=== PATIENT | male | born 1945 | race Caucasian/White ===

== ENCOUNTER 2020-05-22 17:26 | Emergency (ER) | payer MEDICARE, OTHER ==
[2020-05-22 17:37] VITALS: BP 149/90
[2020-05-22] MEDS ORDERED: BUFFERED LIDOCAINE 10 ML SYRINGE SUBQ STA (17:42)
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
[2020-05-22] MEDS ORDERED: TETANUS/DIPHTHERIA/PERTUSSIS 0.5 ML SYRINGE IM ONE (17:58)
== END 2020-05-22 18:12 | disposition home or self-care (01) ==
LOC: ED 17:26
DX: S51.811A Laceration without foreign body of right forearm, initial encounter (principal); V18.0XXA Pedal cycle driver injured in noncollision transport accident in nontraffic accident, initial encounter; Y93.55 Activity, bike riding; Y92.410 Unspecified street and highway as the place of occurrence of the external cause; Z23 Encounter for immunization; I10 Essential (primary) hypertension
CPT/HCPCS: 12002; 90471; 99282; 99283

== ENCOUNTER 2023-02-22 21:23 | Outpatient (CLI) | payer MEDICARE | END 2023-02-22 21:24 | disposition EMS.NT | LOC: EMS 21:23 | DX: K30 Functional dyspepsia (principal); T49.0X1A Poisoning by local antifungal, anti-infective and anti-inflammatory drugs, accidental (unintentional), initial encounter ==

== ENCOUNTER 2023-05-22 13:31 | Outpatient (CLI) | payer MEDICARE | END 2023-05-22 23:59 | disposition EMS.NT | LOC: EMS 13:31 | DX: Z03.89 Encounter for observation for other suspected diseases and conditions ruled out (principal) ==

== ENCOUNTER 2023-12-29 14:08 | Emergency (ER) | payer MEDICARE ==
[2023-12-29 14:35] VITALS: BP 148/66; O2SAT 98
--- NOTE | 2023-12-29 15:29 | ED Physician Documentation ---
PD HPI UPPER EXT INJURY - Stated complaint Stated Complaint: LEFT SHOULDER PX - Chief complaint Chief Complaint: Trauma Ext - Additonal information Additional information: 78-year-old male presents emergency department for left shoulder pain. Patient does have dementia he is here with his who helps provide history they were out for a walk today he excellently tripped and fell onto his left shoulder. He is now having pain with abduction and adduction of the left shoulder mostly to the anterior region but he has been complaining to his about posterior shoulder pain. Patient did not hit his head he denies any neck pain. . PD PAST MEDICAL HISTORY - Past Medical History Past Medical History: Yes Cardiovascular: Hypertension Neuro: Dementia - Past Surgical History Past Surgical History: Yes General: Bowel surgery Cardiovascular: Other - Present Medications Home Medications: Ambulatory Orders Medication Instructions Recorded Confirmed Cholecalciferol (Vitamin D3) 1 tab PO DAILY 02/17/16 02/18/16 [Vitamin D] Multivitamin [Multivitamins] 1 tab PO DAILY 02/17/16 02/18/16 Donepezil [Aricept] 5 mg PO DAILY 05/22/20 05/22/20 Gabapentin 100 mg ORAL DAILY 05/22/20 05/22/20 oxyCODONE [Roxicodone] 5 mg PO Q4HR PRN #10 tablet 12/29/23 - Allergies Allergies/Adverse Reactions: Allergies Allergy/AdvReac Type Severity Reaction Status Date / Time Penicillins Allergy Hives Verified 12/29/23 14:32 - Social History Does the pt smoke?: No Smoking Status: Never smoker Does the pt drink ETOH?: Yes Does the pt have substance abuse?: No - Immunizations Immunizations are current?: Yes PD ED PE NORMAL - Vitals Vital signs reviewed: Yes - General General: No acute distress, Well developed/nourished - HEENT HEENT: Atraumatic, PERRL - Neck Neck: No bony TTP - Respiratory Respiratory: No respiratory distress, Clear bilaterally - Derm Derm: Normal color, Warm and dry - Extremities Extremities: Other (Left upper extremity. Tenderness with palpation to the anterior portion of the shoulder. Pain with abduction and adduction to the anterior shoulder. No obvious deformity strong radial pulse) Results - Vitals Vitals: Vital Signs - 24 hr 12/29/23 14:25 Temperature 36 C L Heart Rate 52 L Respiratory 16 Rate Blood Pressure 148/66 H O2 Saturation 98 Oxygen O2 Source Room air - Rads (name of study) Left shoulder x-ray Relevant Findings:: Final report received, EMP independent interpretation of test, Other (No acute fractures, no dislocations or other abnormal findings.) PD Medical Decision Making - ED course ED course: 78-year-old male presents emergency department for left shoulder pain after experiencing a ground-level fall. X-rays do not reveal any acute fractures or dislocations or other abnormalities. Patient came in wearing a sling he was told to continue to wear the sling with continue to do some gentle range of motion activities to the left shoulder so that he does not get a frozen shoulder. They are established with PCP with [facility] they said that they are planning on reaching out to [facility] for orthopedist referral for further evaluation of the left shoulder pain. He was offered oxycodone here in the emergency department but felt like his pain was well-controlled with the Tylenol ibuprofen he took at home. A prescription of oxycodone was sent to the patients preferred pharmacy and they were informed if they would like to pick it up and they are having a hard time managing the pain at home that they are able to do so. I am prescribing a short course of short-acting opioid pain medication for this patient. I have reviewed the patients MANAGER ONCOLOGY and no concerning findings were noted. I have discussed that the opioids are for short term therapy only, and will not be refilled from the ED. return precautions given to patient and patient's . Departure - Departure Disposition: 01 Home, Self Care Clinical Impression: Shoulder injury Qualifiers: Encounter type: initial encounter Laterality: left Qualified Code(s): S49.92XA - Unspecified injury of left shoulder and upper arm, initial encounter Instructions: Understanding AC Joint Sprain Prescriptions: oxyCODONE [Roxicodone] 5 mg PO Q4HR PRN #10 tablet PRN Reason: Pain >8 Comments: Thank you for trusting us with your care. You can continue with 1000 mg of Tylenol every 8 hours do not exceed 4000 mg of Tylenol in a 24 hour period. You can also take 500 mg of Aleve every 12 hours to help with pain of that left shoulder. You apply 20 minutes of ice at left shoulder make sure that you are taking 1 hour off. I sent a prescription of oxycodone to your preferred pharmacy [facility] in [place]. I am prescribing a short course of narcotic pain medication for you. These are potentially dangerous and addictive medications that should be used carefully. These medications may constipate you. Take an dgdx-syd-zdzbzvc stool softener (docusate) twice daily with plenty of water while taking these medications. If you go 24 hours without a bowel movement, take vizu-ife-aosqpco miralax, per package instructions. Do not drink or drive while taking these medications. If you received narcotic or sedating medications while in the emergency department, do not drive for 24 hours. Store this medication in a safe, secure place and out of reach of children. It is a violation of federal law to give or sell this medication to another person or to use in a manner other than prescribed. The ED will not refill narcotic prescriptions, including prescriptions lost or stolen. To dispose of unwanted medications: 1. [facility] at [address] in [place] has a medication drop box. They accept prescription medications (in pill form) Friday through Friday 9:00 a.m. to 5:00 p.m. 2. [facility] accepts prescription medications (in pill form only) for disposal year round. Call for more information. 3. Contact the [facility] for the next [facility] sponsored prescription drug collection event. , [phone], or [phone]; Note that many narcotic pain relievers also contain Tylenol/acetaminophen. Please ensure that your total dose of acetaminophen from all sources does not exceed 3 g (3000 mg) per day. Forms: PCP List Discharge Date/Time: 12/29/23 16:55
--- NOTE | 2023-12-29 16:07 | XRAY Report ---
PROCEDURE: Shoulder 2+V LT INDICATIONS: GLF, pain TECHNIQUE: 3 views of the shoulder were acquired. COMPARISON: None. FINDINGS: Bones: No fractures or dislocations. No suspicious bony lesions. Visualized ribs appear intact. Soft tissues: No suspicious soft tissue calcifications. The visualized lungs are within normal limi ts. IMPRESSION: No acute fracture. No osseous lesion. If symptoms and/or clinical suspicion for patholog y continue, further assessment with repeat plain films, or advanced imaging (e.g., CT, MRI, or bone s can) is recommended for further assessment. Reviewed by: Darrell Evangelista MD on 12/29/2023 4:05 PM PDT Approved by: Darrell Evangelista MD on 12/29/2023 4:05 PM PDT Station ID: [id number]
== END 2023-12-29 16:55 | disposition home or self-care (01) ==
LOC: ED 14:08
DX: S49.92XA Unspecified injury of left shoulder and upper arm, initial encounter (principal); W19.XXXA Unspecified fall, initial encounter
CPT/HCPCS: 99283; 99284

== ENCOUNTER 2025-03-08 10:44 | Inpatient (IN) ==
--- OUTSIDE RECORDS SUMMARY | 2025-03-08 10:50 | EXTERNAL MEDICAL SUMMARY RPT | Continuity of Care Document ---
Author Organization [facility] Address [address] [place] [id number] Phone Problems date description facility 2025-01-27 09:36 Unspecified injury of head, ini tial encounter [facility] 2025-01-31 09:50 Low back pain, unspecified [facility] 2025-02-17 08:53 Low back pain, unspecified [facility] 2025-03-02 13:24 Dementia in other di seases classified elsewhere, unspecified severity, without behavioral disturbance, psychotic disturbance, mood disturbance, and anxiety [facility] 2025-03-02 13:24 Alzheimer's disease, unspecifie d [facility] 2025-03-02 13:28 Dementia in other di seases classified elsewhere, unspecified severity, without behavioral disturbance, psychotic disturbance, mood disturbance, and anxiety [facility] 2025-03-02 13:28 Alzheimer's disease, unspecifie d [facility] 2025-03-02 13:36 Dementia in other di seases classified elsewhere, unspecified severity, without behavioral disturbance, psychotic disturbance, mood disturbance, and anxiety [facility] 2025-03-02 13:36 Alzheimer's disease, unspecifie d [facility] 2025-03-02 16:46 Alzheimer's disease, unspecifie d [facility] 2025-03-02 20:17 Dementia in other di seases classified elsewhere, unspecified severity, without behavioral disturbance, psychotic disturbance, mood disturbance, and anxiety [facility] 2025-03-02 20:17 Alzheimer's disease, unspecifie d [facility] 2025-03-02 20:17 Other retention of urine [facility] 2025-03-03 07:39 Dementia in other di seases classified elsewhere, unspecified severity, without behavioral disturbance, psychotic disturbance, mood disturbance, and anxiety [facility] 2025-03-03 07:39 Alzheimer's disease, unspecifie d [facility] 2025-03-03 07:39 Other retention of urine [facility] 2025-03-03 09:28 Dementia in other di seases classified elsewhere, unspecified severity, without behavioral disturbance, psychotic disturbance, mood disturbance, and anxiety [facility] 2025-03-03 09:28 Alzheimer's disease, unspecifie d [facility] 2025-03-03 09:28 Other retention of urine [facility] 2025-03-03 09:33 Dementia in other di seases classified elsewhere, unspecified severity, without behavioral disturbance, psychotic disturbance, mood disturbance, and anxiety [facility] 2025-03-03 09:33 Alzheimer's disease, unspecifie d [facility] 2025-03-03 09:33 Other retention of urine [facility] 2025-03-03 11:15 Dementia in other di seases classified elsewhere, unspecified severity, without behavioral disturbance, psychotic disturbance, mood disturbance, and anxiety [facility] 2025-03-03 11:15 Alzheimer's disease, unspecifie d [facility] 2025-03-03 11:15 Other retention of urine [employer] Results/Labs test date facility value unit notes Result panel 1 UROBILINOGEN,URINE 2025-02-28 19:14 [facility] 0.2 (NORMAL) e.u./dl (missing) SPECIFIC GRAVITY,URINE 2025-02-28 19:14 [facility] 1.015 (missing) (missing) PH,URINE 2025-02-28 19:14 [facility] 6.5 ph (missing) CLARITY,URINE 2025-02-28 19:14 [facility] CLEAR (missing) (missing) MUDS CUTOFF CONCENTRATIONS 2025-02-28 19:[address] [facility] CUTOFF CONC BELOW: (missing) [facility] uses the PROFILE-V [place] Drugs of Abuse Test System. It detects drug classes at the following cutoff concentrations: AMP Amphetamine (d-Amphetamine) 500 ng/mL BAR Barbiturates (Butalbital) 200 ng/mL BZO Benzodiazepines (Nordiazepam) 150 ng/mL BUP Buprenorphine (Buprenorphine) 10 ng/mL ÁNGELA Cocaine (Benzoylecgonine) 150 ng/mL MAMP Methamphetamine (d-Methamphetamine ) 500 ng/mL MTD Methadone (Methadone) 200 ng/mL OPI Opiates (Morphine) 100 ng/mL OXY Oxycodone (Oxycodone) 100 ng/mL PCP Phencyclidine (Phencyclidine) 25 ng/mL BUP Buprenorphine (Buprenorphine) 10 ng/mL THC Cannabinoids (61-xgb-9-carboxy- 9-THC) 50 ng/mL TCA Tricyclic Antidepressants (Desipramine) 300 ng/mL All drug screen results are unconfirmed. Results are to be used for medical (i.e. treatment) purposes only. Unconfirmed screening results must not be used for non-medical purposes (e.g., employment testing, legal testing). AMPHETAMINE SCREEN,URINE 2025-02-28 19:14 [facility] NEGATIVE (missing) (missing) BARBITURATE SCREEN,UR 2025-02-28 19:14 [facility] NEGATIVE (missing) (missing) BENZODIAZEPINES SCREEN, URINE 2025-02-28 19:14 [facility] NEGATIVE (missing) (missing) BUPRENORPHINE SCREEN, URINE 2025-02-28 19:14 [facility] NEGATIVE (missing) (missing) COCAINE SCREEN URINE 2025-02-28 19:14 [facility] NEGATIVE (missing) (missing) LEUKOCYTE ESTERASE, URINE 2025-02-28 19:14 [facility] NEGATIVE (missing) (missing) METHADONE SCREEN, URINE 2025-02-28 19:14 [facility] NEGATIVE (missing) (missing) METHAMPHETAMINES SCREEN, URINE 2025-02-28 19:14 [facility] NEGATIVE (missing) (missing) NITRITE,URINE 2025-02-28 19:14 [facility] NEGATIVE (missing) (missing) OCCULT BLOOD,URINE 2025-02-28 19:14 [facility] NEGATIVE (missing) (missing) OPIATE SCREEN, URINE 2025-02-28 19:14 [facility] NEGATIVE (missing) (missing) OXYCODONE SCREEN, URINE 2025-02-28 19:14 [facility] NEGATIVE (missing) (missing) PHENCYCLIDINE SCREEN, URINE 2025-02-28 19:14 [facility] NEGATIVE (missing) (missing) THC CANNABINOID SCREEN, URINE 2025-02-28 19:14 [facility] NEGATIVE (missing) (missing) TRICYCLIC ANTIDEPRESSANT,URINE 2025-02-28 19:14 [facility] NEGATIVE (missing) (missing) BILIRUBIN,URINE 2025-02-28 19:14 [facility] NEGATIVE (missing) Bilirubin can be influenced by color interference. Please correlate positive results with clinical presentation GLUCOSE, URINE (UA) 2025-02-28 19:14 [facility] NEGATIVE mg/dl (missing) KETONES,URINE (UA) 2025-02-28 19:14 [facility] NEGATIVE mg/dl (missing) PROTEIN,URINE 2025-02-28 19:14 [facility] NEGATIVE mg/dl (missing) UR CULTURE IF IND 2025-02-28 19:14 [facility] NOT INDICATED (missing) (missing) URINE MICROSCOPIC INDICATED? 2025-02-28 19:14 [facility] NOT INDICATED (missing) (missing) COLOR,URINE 2025-02-28 19:14 [facility] YELLOW (missing) (missing) Result panel 2 SALICYLATE 2025-02-28 20:14 [facility] < 1.5 mg/dl Social History date description facility
--- NOTE | 2025-03-08 11:01 | ED Physician Documentation ---
PD HPI ALTERED MENTAL STATUS Stated complaint Stated Complaint: AMS/SLEEPING X2 DAYS Chief complaint Chief Complaint: General History obtained from History obtained from: Patient (not much info from patient as he is somnolent (rousable but no answering questions). ), Family (spouse) and EMS History of Present Illness Timing - onset: How many days ago ( states pt has been very sleepy and less interactive, not up and walking, since hospitalization recently and then at [facility]. Caregivers at [facility] state pt has been sleeping, no PO intake, the past 2 days. Poorly responsive still today. ) Timing - details: Gradual onset and Still present Quality / character: Less responsive Associated symptoms: No Fever or Dyspnea Contributing factors: Recent med change (started on respiradone due to agitation, 50 mg BID, and has been administered per SNF DEC. also Rx ativan PRN but no doses given there as yet. ) and Recent illness (UTI and urinary retention, along with agitation. ) Basline status: Ambulatory ( states he had been ambualtory, taking walks and out with her in the garden, up until couple weeks ago. Had been more agitated and seen in ED/extended stay for 4 days and placed at SNF with new meds for agitation.) and Disoriented (dementia) Recently seen: Emergency Dept Meds/Allgy Home Medications Ambulatory Orders Medication Instructions Recorded Confirmed cholecalciferol (vitamin D3) 50 50 mcg PO DAILY #30 ca ps 03/02/25 03/08/25 mcg (2,000 unit) capsule (Vitamin D3) cyanocobalamin (vitamin B-12) 500 500 mcg PO DAILY #30 tabs 03/02/25 03/08/25 mcg tablet (Vitamin B-12) divalproex 125 mg capsule,delayed 125 mg PO TID #90 ca ps 03/02/25 03/08/25 release sprinkle escitalopram oxalate 10 mg tablet 20 mg (2 x 10 mg) PO DAILY #60 tabs 03/02/25 03/08/25 gabapentin 100 mg capsule 200 mg (2 x 100 mg) PO BIDAC #60 03/02/25 03/08/25 caps ipratropium bromide 21 mcg (0.03 2 spray intranasal BI D #30 mL 03/02/25 03/08/25 %) nasal spray lorazepam 1 mg tablet 1 mg PO TID PRN agitation #9 0 tabs 03/02/25 03/08/25 melatonin 5 mg capsule 5 mg PO HS insomnia #30 caps 03/02/25 03/08/25 risperidone 0.25 mg tablet 0.5 mg (2 x 0.25 mg) PO BID #60 03/02/25 03/08/25 tabs tamsulosin 0.4 mg capsule (Flomax) 0.4 mg PO DAILY #30 caps 03/02/25 03/08/25 acetaminophen 325 mg tablet 650 mg PO Q4H PRN fever or pain 03/08/25 03/08/25 acetaminophen 500 mg tablet 500 mg PO Q6H PRN fever or pain 03/08/25 03/08/25 alum-mag hydroxide-simeth 30 ml PO Q4H PRN UPSET STOMA CH 03/08/25 03/08/25 gabapentin 300 mg PO .QHS 03/08/25 05/ 0 loperamide 4 mg PO .COMPLEX PRN constip ation 03/08/25 03/08/25 magnesium 2,400 mg PO DAILY PRN consti pation 03/08/25 03/08/25 magnesium oxide 400 mg PO DAILY 03/08/25 Allergies Allergies Allergy/AdvReac Type Severity Reaction Status Date / Time Penicillins Allergy Hives Verified 03/08/25 10:49 PFSH Active Problems All Active Problems (Updated 03/09/25 @ 00:00 by Destin Slade MD) Medication side effect (Acute) Acute bilateral obstructive uropathy (Acute) Acute metabolic encephalopathy (Acute) High anion gap metabolic acidosis (Acute) Urinary tract infection (Acute) Hyperkalemia (Acute) Acute kidney injury (Acute) Acute urinary retention (Acute) Alzheimer disease (Acute) Medical History Medical History (Updated 03/09/25 @ 00:00 by Destin Slade MD) HTN (hypertension) Social History Social History Smoking Status: Former smoker Second hand tobacco smoke exposure: No Do you dip or chew tobacco?: No Do you vape?: No Living arrangement: At home Living Condition: With spouse/s.o. Relationship: Spouse Level: Independent Do you feel safe in your home environment?: Yes Suffered physical, verbal, emotional, or financial abuse?: No ETOH Use: Frequency: Daily Number of Amount/day: 1 POLST Patient has POLST: Yes POLST Status: DNR Exam Exam Vital Signs: Vital Signs x48h Temp Pulse Resp BP Pulse Ox 03/08/25 10:49 36.6 C 135 H 18 139/105 H 93 Constitutional normal general appearance, average body habitus and level of alertness abnormal (obtunded) and (lethargic) HENMT head/scalp atraumatic and oral mucous membranes abnormal (dry) Neck/C-Spine cervical full ROM noted and supple Lymph no lymphadenopathy noted Respiratory breath sounds equal bilaterally and normal respiratory effort Cardiovascular normal heart rate noted, regular rhythm noted and no edema Gastrointestinal tender to palpation (moderate) and (suprapubic) (with fullness of the bladder. bladder scanner showed over 900 ml. ) and nontender to percussion Psychiatry mental status abnormal (somnolent) and (obtunded) Skin skin color normal Results Vitals Vitals: Vital Signs - 24 hr 03/08/25 10:49 03/08/25 11:08 03/08/25 11:30 Temperature 36.6 C Temperature Source Temporal Artery Scan Pulse Rate 135 H 129 H 127 H Pulse Rate [Brachial] Respiratory Rate 18 16 18 Blood Pressure 139/105 H 139/105 H 140/96 H Blood Pressure [Left Brachial artery] O2 Saturation 93 92 94 O2 Source Room air Room air Room air Sedation scale Pain Intensity 0 03/08/25 11:45 03/08/25 12:00 03/08/25 12:15 Temperature Temperature Source Pulse Rate 98 103 H 104 H Pulse Rate [Brachial] Respiratory Rate 18 18 18 Blood Pressure 132/81 H 119/89 111/67 Blood Pressure [Left Brachial artery] O2 Saturation 93 95 94 O2 Source Room air Sedation scale Pain Intensity 03/08/25 12:30 03/08/25 12:45 03/08/25 13:00 Temperature Temperature Source Pulse Rate 109 H 66 83 Pulse Rate [Brachial] Respiratory Rate 18 18 18 Blood Pressure 87/70 L 104/76 114/78 Blood Pressure [Left Brachial artery] O2 Saturation 94 92 92 O2 Source Room air Room air Sedation scale Pain Intensity 03/08/25 13:15 03/08/25 13:30 03/08/25 14:00 Temperature Temperature Source Pulse Rate 92 66 134 H Pulse Rate [Brachial] Respiratory Rate 18 18 18 Blood Pressure 114/85 106/83 132/82 H Blood Pressure [Left Brachial artery] O2 Saturation 94 93 92 O2 Source Room air Sedation scale Pain Intensity 03/08/25 14:15 03/08/25 14:45 03/08/25 15:08 Temperature 36.6 C Temperature Source Temporal Artery Scan Pulse Rate 120 H 112 H Pulse Rate [Brachial] 94 Respiratory Rate 18 16 20 Blood Pressure 116/91 H 130/95 H Blood Pressure [Left Brachial artery] 146/75 H O2 Saturation 92 95 95 O2 Source Room air Room air Sedation scale 0-Fully awake Pain Intensity Oxygen O2 Source Room air Labs Labs: Laboratory Tests 03/08/25 03/08/25 03/08/25 11:17 11:35 11:35 WBC 12.5 H RBC 4.71 Hgb 15.8 Hct 47.0 MCV 99.8 H MCH 33.5 H MCHC 33.6 RDW 13.3 Plt Count 152 MPV 10.1 Neut # (Auto) 10.2 H Lymph # (Auto) 0.7 L [place] # (Auto) 1.5 H Eos # (Auto) 0.0 Baso # (Auto) 0.0 Absolute Nucleated RBC 0.00 Nucleated RBC % 0.0 Manual Slide Review Indicated WBC Morphology NORMAL APPEARANCE Platelet Estimate NORMAL (130-450,000) Platelet Morphology NORMAL APPEARANCE RBC Morph Micro Appear NORMAL APPEARANCE VBG pH 7.431 H VBG pCO2 26.0 L VBG pO2 79.8 H VBG HCO3 17.4 L VBG Total CO2 18.2 L VBG O2 Saturation 96.0 H VBG Base Excess -7.1 L Sodium 146 H Potassium 5.3 H Chloride 109 Carbon Dioxide 20 L Anion Gap 17.0 H BUN 111 H* Creatinine 11.0 H* Estimated GFR (MDRD) 5 L Glucose 147 H Calcium 9.2 Magnesium 3.1 H Total Bilirubin 1.1 H AST 22 ALT 38 Alkaline Phosphatase 55 Total Protein 7.1 Albumin 3.8 Globulin 3.3 Albumin/Globulin Ratio 1.2 Lipase < 10 L Urine Color YELLOW Urine Clarity SL. CLOUDY Urine pH 6.0 Ur Specific [place] 1.020 Urine Protein TRACE Urine Glucose (UA) NEGATIVE Urine Ketones NEGATIVE Urine Occult Blood LARGE H Urine Nitrite NEGATIVE Urine Bilirubin NEGATIVE Urine Urobilinogen 0.2 (NORMAL) Ur Leukocyte Esterase TRACE H Urine RBC TNTC H Urine WBC 11-25 H Ur Squamous Epith Cells NONE SEEN Urine Bacteria Few Urine Casts 0-2 WBC Casts 3-5 Hyaline Casts Urine Mucus Moderate Strands Urine Culture Comments INDICATED Nasal Adenovirus (PCR) NOT DETECTED Nasal B. parapertussis DNA (PCR) NOT DETECTED Nasal Coronavir 229E PCR NOT DETECTED Nasal Coronavir HKU1 PCR NOT DETECTED Nasal Coronavir NL63 PCR NOT DETECTED Nasal Coronavir OC43 PCR NOT DETECTED Nasal Enterovir/Rhinovir PCR NOT DETECTED Nasal Influenza B PCR NOT DETECTED Nasal Influenza A PCR NOT DETECTED Nasal Parainfluen 1 PCR NOT DETECTED Nasal Parainfluen 2 PCR NOT DETECTED Nasal Parainfluen 3 PCR NOT DETECTED Nasal Parainfluen 4 PCR NOT DETECTED Nasal RSV (PCR) NOT DETECTED Nasal B.pertussis DNA PCR NOT DETECTED Nasal C.pneumoniae (PCR) NOT DETECTED Joesph Human Metapneumo PCR NOT DETECTED Nasal M.pneumoniae (PCR) NOT DETECTED Nasal SARS-CoV-2 (PCR) NOT DETECTED Last Dose Date UNK Last Dose Time UNK Valproic Acid 12.7 03/08/25 13:37 WBC RBC Hgb Hct MCV MCH MCHC RDW Plt Count MPV Neut # (Auto) Lymph # (Auto) [place] # (Auto) Eos # (Auto) Baso # (Auto) Absolute Nucleated RBC Nucleated RBC % Manual Slide Review WBC Morphology Platelet Estimate Platelet Morphology RBC Morph Micro Appear VBG pH VBG pCO2 VBG pO2 VBG HCO3 VBG Total CO2 VBG O2 Saturation VBG Base Excess Sodium 148 H Potassium 4.9 H Chloride 114 H Carbon Dioxide 23 Anion Gap 11.0 BUN 95 H* Creatinine 8.2 H* Estimated GFR (MDRD) 6 L Glucose 137 H Calcium 8.6 Magnesium Total Bilirubin AST ALT Alkaline Phosphatase Total Protein Albumin Globulin Albumin/Globulin Ratio Lipase Urine Color Urine Clarity Urine pH Ur Specific [place] Urine Protein Urine Glucose (UA) Urine Ketones Urine Occult Blood Urine Nitrite Urine Bilirubin Urine Urobilinogen Ur Leukocyte Esterase Urine RBC Urine WBC Ur Squamous Epith Cells Urine Bacteria Urine Casts Urine Mucus Urine Culture Comments Nasal Adenovirus (PCR) Nasal B. parapertussis DNA (PCR) Nasal Coronavir 229E PCR Nasal Coronavir HKU1 PCR Nasal Coronavir NL63 PCR Nasal Coronavir OC43 PCR Nasal Enterovir/Rhinovir PCR Nasal Influenza B PCR Nasal Influenza A PCR Nasal Parainfluen 1 PCR Nasal Parainfluen 2 PCR Nasal Parainfluen 3 PCR Nasal Parainfluen 4 PCR Nasal RSV (PCR) Nasal B.pertussis DNA PCR Nasal C.pneumoniae (PCR) Joesph Human Metapneumo PCR Nasal M.pneumoniae (PCR) Nasal SARS-CoV-2 (PCR) Last Dose Date Last Dose Time Valproic Acid PD Medical Decision Making ED course Complexity details: reviewed old records (recent hospitalization and discharge summary/med changes. ), reviewed results (renal function is signficantly off, presume dehydration given his somnolence for several days, and likely obstructive uropathy. Creatinine was already down from 11 to 8 after lewis cath and IV fluids. ), considered differential (altered mentation, sleepy and not eating/drinking for days. Consider likely new med of respiradone that was started due to agitation with his dementia. Then dehydration with uremia continuing the AMS. /POLST indicate no dialysis/etc. ), d/w patient (no direct info from pt, but responds to stimulus, showing tender in bladder area. ), d/w family ( present in ED and would like minimal interventions - IV fluids to improve dehydration and we agree holding the respiradone as his altered entation seems timed with the med. He might need med for agitation but would go lower dose such as 12.5 mg if needs to resume it. ) and d/w life skills consultant (Hospitalist, who will see pt. ) Reviewed Lab Results: bedside bladder scanner showing over 900 ml in bladder. Lewis placed by nursing. Discharge Plan Discharge Patient Disposition: ED Place in Observation Condition: Poor Clinical Impression: Acute metabolic encephalopathy, Acute urinary retention, Acute kidney injury, Acute bilateral obstructive uropathy, Medication side effect, Alzheimer disease Interventions: ED Admission Assessment Last Done: 03/08/25 15:00
[2025-03-08] MEDS: SODIUM CHLORIDE 0.9% 1,000 ML IV STA ×2 (11:16→12:38)
[2025-03-08 11:24] LABS: BASOPHILS % (AUTO) 0.2 %; EOSINOPHILS % (AUTO) 0.1 %; HGB - HEMOGLOBIN 15.8 g/dL (14.0-18.0); LYMPHOCYTES # (AUTO) 0.7 10^3/uL (1.5-3.5); LYMPHOCYTES % (AUTO) 5.3 %; MEAN CORPUSCULAR HEMOGLOBIN 33.5 pg (27.0-31.0); MEAN CORPUSCULAR HGB CONC 33.6 g/dL (32.0-36.0); MEAN CORPUSCULAR VOLUME 99.8 fL (80.0-94.0); MEAN PLATELET VOLUME 10.1 fL (7.4-11.4); MONOCYTES # (AUTO) 1.5 10^3/uL (0.0-1.0); MONOCYTES % (AUTO) 12.2 %; NEUTROPHILS # (AUTO) 10.2 10^3/uL (1.5-6.6); NEUTROPHILS % (AUTO) 81.9 %; PLT - PLATELET COUNT 152 10^3/uL (130-450); RED BLOOD COUNT 4.71 10^6/uL (4.70-6.10); RED CELL DISTRIBUTION WIDTH 13.3 % (12.0-15.0); WHITE BLOOD COUNT 12.5 x10^3/uL (4.8-10.8)
[2025-03-08 11:26] LABS: VBG BASE EXCESS -7.1 mmol/L (-2 - +2); VBG PH 7.431 (7.31-7.41); VBG PO2 79.8 mmHg (25-47); VBG TOTAL CO2 18.2 mmol/L (24-29)
[2025-03-08 11:37] LABS: MAGNESIUM 3.1 mg/dL (1.7-2.3); VALPROIC ACID (DEPAKOTE) 12.7 ug/mL
[2025-03-08 11:42] LABS: ALBUMIN 3.8 g/dL (3.2-5.5); ALBUMIN/GLOBULIN RATIO 1.2 (1.0-2.2); ALKALINE PHOSPHATASE 55 IU/L (42-121); ALT ALANINE AMINOTRANSFERASE 38 IU/L (10-60); AST ASPARTATE AMINOTRANSFERASE 22 IU/L (10-42); BILIRUBIN,TOTAL 1.1 mg/dL (0.2-1.0); BUN - BLOOD UREA NITROGEN 111 mg/dL (6-20); CALCIUM 9.2 mg/dL (8.5-10.3); CARBON DIOXIDE - CO2 20 mmol/L (21-32); CHLORIDE 109 mmol/L (101-111); GFR - MDRD 5 (>89); GLUCOSE 147 mg/dL (74-104); LIPASE < 10 U/L (11-82); POTASSIUM 5.3 mmol/L (3.5-4.5); SODIUM 146 mmol/L (135-145); TOTAL PROTEIN 7.1 g/dL (6.4-8.9)
[2025-03-08 11:45] LABS: BILIRUBIN,URINE NEGATIVE (NEGATIVE); GLUCOSE, URINE (UA) NEGATIVE (NEGATIVE); KETONES,URINE (UA) NEGATIVE (NEGATIVE); LEUKOCYTE ESTERASE, URINE TRACE (NEGATIVE); NITRITE,URINE NEGATIVE (NEGATIVE); OCCULT BLOOD,URINE LARGE (NEGATIVE); PROTEIN,URINE TRACE mg/dL (NEGATIVE); UROBILINOGEN,URINE 0.2 (NORMAL) E.U./dL (NORMAL)
[2025-03-08 11:50] LABS: PLATELET ESTIMATE, MANUAL NORMAL (130-450,000) (NORMAL); PLATELET MORPHOLOGY NORMAL APPEARANCE (NORMAL); SLIDE REVIEW? Indicated
[2025-03-08 11:51] LABS: RBC MORPHOLOGY (MULTIPLE) NORMAL APPEARANCE (NORMAL); WBC MORPHOLOGY (MULTIPLE) NORMAL APPEARANCE (NORMAL)
--- NOTE | 2025-03-08 11:56 | XRAY Report ---
PROCEDURE: XR Chest 1V INDICATIONS: dyspnea TECHNIQUE: One view of the chest was acquired. COMPARISON: None. FINDINGS: Surgical changes and devices: None. Lungs and pleura: No pleural effusions or pneumothorax. No consolidation. Mediastinum: Mediastinal contours appear normal. Heart size is mildly enlarged. Bones and chest wall: No suspicious bony lesions. Overlying soft tissues appear unremarkable. IMPRESSION: Mild cardiomegaly. No gross infiltrates. Reviewed by: Timothy Schwab MD on 03/08/2025 11:54 AM PDT Approved by: Timothy Schwab MD on 03/08/2025 11:54 AM PDT Station ID: [id number]
[2025-03-08 11:58] LABS: BACTERIA,URINE Few /HPF (None Seen); CLARITY,URINE SL. CLOUDY (CLEAR); MUCUS,URINE Moderate Strands; RBC,URINE TNTC /HPF (0-5); SQUAMOUS EPITHELIAL CELL,UR NONE SEEN (<= Few)
[2025-03-08 12:26] LABS: B. PARAPERTUSSIS- RESP PCR PAN NOT DETECTED; B. PERTUSSIS- RESP PCR PANEL NOT DETECTED; C. PNEUMONIAE- RESP PCR PANEL NOT DETECTED; CORONAVIRUS 229E-RESP PCR NOT DETECTED; CORONAVIRUS HKU1-RESP PCR NOT DETECTED; CORONAVIRUS NL63-RESP PCR NOT DETECTED; CORONAVIRUS OC43-RESP PCR NOT DETECTED; HUMAN METAPNEUMOVIRUS NOT DETECTED; INFLUENZA A- RESP PCR PANEL NOT DETECTED; INFLUENZA B - RESP PCR PANEL NOT DETECTED; M. PNEUMONIAE- RESP PCR PANEL NOT DETECTED; PARAINFLUENZA VIRUS 1 NOT DETECTED; PARAINFLUENZA VIRUS 2 NOT DETECTED; PARAINFLUENZA VIRUS 4 NOT DETECTED; RHINOVIRUS/ENTEROVIRUS NOT DETECTED; RSV- RESP PCR PANEL NOT DETECTED; SARS-CoV-2 -RESP PCR PANEL NOT DETECTED
--- NOTE | 2025-03-08 13:08 | HISTORY & PHYSICAL EXAMINATION ---
Chief Complaint Chief Complaint Chief Complaint: Lethargy History of Present Illness Admitted From Admitted From:: Memory care facility History Obtained From Records Reviewed: EMR History obtained from: Patient's at bedside Exam Limitations: Patient lethargic History of Present Illness HPI Comment/Other: Patient is a 79-year-old man with a history of Alzheimer's dementia who presented due to worsening lethargy. History is taken from patient's at bedside as patient is unable to provide so. He is nonverbal at this time. Patient's says about 2 weeks ago, she started noticing increased aggression. She has a long history of dealing with Alzheimer's disease in her mother, as well as her 's mother. Initially, she was able to handle him at home. However, with increased aggression and outburst, it was not safe for her to do so. As such, she brought him to the ER at that time, and patient was placed in a memory care facility. During that stay, he was found to be retaining urine. A Meier catheter was placed. At the memory care facility, he pulled out his Meier catheter. Over the last few days, per the , he has been increasingly lethargic. Usually he wakes up, and is able to eat a little bit. However, he is unable to do so at this time. He has been sleeping all day. Lab work was reviewedpatient has a leukocytosis of 12.5. His pH was 7.43, his CO2 is 26. His sodium is elevated at 146, his potassium is 5.3. He has a high and gap metabolic acidosis. His BUN is 111. His creatinine is elevated at 11, with his baseline on 02/28/2025 being 1.2. His magnesium was high at 3.1 as well. He is UA is positive for blood, leukocyte esterase, WBCs. Abdomen/pelvis CT without contrast was completed, read remains pending. Meier catheter was placed. was spoken with at bedside extensively about goals of careshe does not want dialysis. He is DNR/DNI. She would like to give him some time with IV fluids, antibiotics, minimal medical management. However, if there is not much improvement, she is very well versed in hospice care and will be okay going down that route. Meds/Allgy Home Medications Ambulatory Orders Medication Instructions Recorded Confirmed acetaminophen 325 mg tablet 650 mg (2 x 325 mg) PO Q4H R PRN 03/02/25 Pain 1 to 4, or Fever #30 tabs cholecalciferol (vitamin D3) 50 50 mcg PO DAILY #30 ca ps 03/02/25 03/02/25 mcg (2,000 unit) capsule (Vitamin D3) cyanocobalamin (vitamin B-12) 500 500 mcg PO DAILY #30 tabs 03/02/25 03/02/25 mcg tablet (Vitamin B-12) divalproex 125 mg capsule,delayed 125 mg PO TID #90 ca ps 03/02/25 03/02/25 release sprinkle escitalopram oxalate 10 mg tablet 20 mg (2 x 10 mg) PO DAILY #60 tabs 03/02/25 03/02/25 gabapentin 100 mg capsule 200 mg (2 x 100 mg) PO BIDAC #60 03/02/25 03/02/25 caps gabapentin 100 mg capsule 300 mg (3 x 100 mg) PO HS #9 0 caps 03/02/25 03/02/25 ipratropium bromide 21 mcg (0.03 2 spray intranasal BI D #30 mL 03/02/25 %) nasal spray lorazepam 1 mg tablet 1 mg PO TID PRN agitation #9 0 tabs 03/02/25 magnesium oxide 400 mg (241.3 mg 400 mg PO DAILY #30 t abs 03/02/25 03/02/25 magnesium) tablet melatonin 5 mg capsule 5 mg PO HS insomnia #30 caps 03/02/25 03/02/25 risperidone 0.25 mg tablet 0.5 mg (2 x 0.25 mg) PO BID #60 03/02/25 tabs tamsulosin 0.4 mg capsule (Flomax) 0.4 mg PO DAILY #30 caps 03/02/25 Allergies Allergies Allergy/AdvReac Type Severity Reaction Status Date / Time Penicillins Allergy Hives Verified 03/08/25 10:49 PFSH Active Problems All Active Problems (Updated 03/08/25 @ 16:21 by Niko Mendoza MD) Acute metabolic encephalopathy (Acute) High anion gap metabolic acidosis (Acute) Urinary tract infection (Acute) Hyperkalemia (Acute) Acute kidney injury (Acute) Acute urinary retention (Acute) Alzheimer disease (Acute) Medical History Medical History (Updated 03/08/25 @ 16:21 by Niko Mendoza MD) HTN (hypertension) Social History Social History Smoking Status: Former smoker Second hand tobacco smoke exposure: No Do you dip or chew tobacco?: No Do you vape?: No Living arrangement: At home Living Condition: With spouse/s.o. Relationship: Spouse Level: Independent Do you feel safe in your home environment?: Yes Suffered physical, verbal, emotional, or financial abuse?: No ETOH Use: Frequency: Daily Number of Amount/day: 1 POLST Patient has POLST: Yes POLST Status: DNR Review of Systems Patient lethargic, non-verbal, A&O x 0. Status of ROS: unobtainable due to medical condition and unobtainable due to mental status Prior Level of Functionality: Lives at [facility]. Advanced Alzheimers' dementia. Exam Exam Vital Signs: Vital Signs x48h Temp Pulse Pulse Resp BP BP Pulse Ox 03/08/25 15:08 97.9 F 94 20 146/75 H 95 03/08/25 14:45 112 H 16 130/95 H 95 03/08/25 14:15 120 H 18 116/91 H 92 03/08/25 14:00 134 H 18 132/82 H 92 03/08/25 13:30 66 18 106/83 93 03/08/25 13:15 92 18 114/85 94 03/08/25 13:00 83 18 114/78 92 03/08/25 12:45 66 18 104/76 92 03/08/25 12:30 109 H 18 87/70 L 94 03/08/25 12:15 104 H 18 111/67 94 03/08/25 12:00 103 H 18 119/89 95 03/08/25 11:45 98 18 132/81 H 93 03/08/25 11:30 127 H 18 140/96 H 94 03/08/25 11:08 129 H 16 139/105 H 92 03/08/25 10:49 97.9 F 135 H 18 139/105 H 93 Constitutional normal general appearance, no apparent distress, average body habitus and level of alertness abnormal Lethargic, mildly repsonsive to sternal rub. HENMT normocephalic and head/scalp atraumatic Eyes PERRL, EOMs intact bilaterally and conjunctivae normal Chest inspection of chest normal and palpation of chest normal Respiratory breath sounds equal bilaterally, normal respiratory effort, clear to auscultation bilaterally, no wheezes, no rales and no retractions Cardiovascular heart rate abnormal (tachycardic), regular rhythm noted, no gallop, no rub and no murmur Gastrointestinal abdomen normal to inspection, abdomen soft to palpation, no hepatosplenomegaly and no masses Genitourinary no CVA tenderness and bladder abnormal to palpation (tender) Meier catheter in place with yellow-brown urine noted Back/Pelvis spine normal to inspection Extremities normal to inspection, normal to palpation, no tenderness and full ROM Neurology no movement abnormality noted and no focal motor deficit noted Psychiatry orientation abnormal (disoriented to person), (disoriented to place) and (disoriented to time) and thought process normal lethargic, mildly repsonsive to painful stimuli i.e. sternal rub Skin skin color normal, no rash and no lesions Conclusion/Plan Problem List (1) Acute urinary retention: Plan: When patient presented, he was retaining about 900 cc of urine. Meier catheter placed. UA positive for infection. Continue IV Rocephin at this time. CT abdomen/pelvis ordered, read pending, to assess for stones or obstruction. (2) Acute metabolic encephalopathy: Plan: Patient has underlying Alzheimer's disease. However, current mentation is likely worsened by uremia, VESNA. Continue IV fluid resuscitation at this time. (3) Acute kidney injury: Plan: Creatinine elevated at 11, repeat after fluids is 8.2. Patient is making adequate urine. Continue IV fluids at this time. UA positive for infection. Continue IV Rocephin at this time. (4) Hyperkalemia: Plan: Secondary to acute kidney injury. Downtrending with improvement of VESNA. Continue IV fluids at this time. (5) Urinary tract infection: Plan: Continue IV Rocephin. CT abdomen/pelvis ordered, pending. Qualifiers: Hematuria presence: without hematuria Urinary tract infection type: s ite unspecified Qualified Code(s): N39.0 - Urinary tract infection, site not specified (6) High anion gap metabolic acidosis: Plan: Likely due to uremia in setting of acute kidney injury. Management as above. (7) Alzheimer disease: Plan: Patient has a longstanding history of Alzheimer's disease. Patient's is at bedside. She is very understanding of his trajectory, goals of care, etc. If by tomorrow, his mentation is not improving, we will consult hospice for informational, as per . Lab Results Lab results reviewed: Yes 03/08/25 11:17 03/08/25 13:37 Diagnostic Imaging Results Diagnostic Imaging Results: positive Final report reviewed EKG Results EKG Interpreted Independently: Yes Core Measures Anticipated LOS I expect patient to be DC'd or transferred within 96 hours.: Yes Issues Hospital Issues and Management Plan: None anticipated. DVT/VTE - Prophylaxis VTE/DVT Device ordered at admit?: Yes VTE/DVT Prophylaxis med ordered at admit?: Yes
[2025-03-08 14:21] LABS: CALCIUM 8.6 mg/dL (8.5-10.3); CREATININE 8.2 mg/dL (0.6-1.3); POTASSIUM 4.9 mmol/L (3.5-4.5)
--- NOTE | 2025-03-08 14:54 | CT Report ---
PROCEDURE: CT Abdomen/Pelvis WO INDICATIONS: urinary retention and VESNA, eval for stone TECHNIQUE: A CT scan of the abdomen and pelvis was performed without the use of intravenous contrast. Images were recorded and evaluated at appropriate window settings. Reformats: coronal and sagittal. For radiation dose reduction, the following was used: automated exposure control, adjustment of mA and/or kV according to patient size. COMPARISON: None. FINDINGS: Image quality: Diagnostic. Lower chest: Cardiomegaly. Patchy bibasilar atelectasis. Right Kidney: No renal parenchymal stone. Mild hydronephrosis. Right Ureter: Mild hydroureter. The bladder is decompressed by a Meier catheter. There is a right bladder wall region 1 mm calcification which may potentially represent a ureterovesical junction stone. Reference axial image 135 of series 2. Left Kidney: Mild hydronephrosis. No renal parenchymal stone. Left Ureter: Mildly prominent ureter down to the level of the base of the bladder. Bladder: Bladder is decompressed by Meier catheter. There is mild diffuse bladder wall thickening. Liver: No contour-deforming mass. Gallbladder: No radiopaque stones or wall thickening. Biliary tree: No intrahepatic or extrahepatic dilation, accounting for age. Spleen: No splenomegaly. Pancreas: No pancreatic ductal dilation. Adrenals: No adrenal nodule. Stomach, bowel and peritoneum: No gastric or small bowel dilation. No abnormal wall thickening. No pathologic free fluid. Normal appendix. Lymph nodes: No central or retroperitoneal adenopathy. Vessels: No infrarenal aortic aneurysm. Reproductive organs: Moderately severe prostatomegaly. Pelvic lymph nodes: No adenopathy by size criteria. Bones: No aggressive osseous abnormality. 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 Other: Fat-containing right inguinal hernia. Small periumbilical hernia containing fat. IMPRESSION: 1. There is moderately severe prostatomegaly. 2. The bladder is decompressed with a Meier catheter. There is bladder wall thickening. 3. Suspect 1 mm right ureterovesical junction stone. 4. Mild bilateral hydronephrosis. No renal parenchymal stone. Findings may represent a combination of bladder outlet obstruction and a right UVJ stone resulting in mild bilateral hydroureter and hydronephrosis. 5. Cardiomegaly. Reviewed by: Timothy Schwab MD on 03/08/2025 2:52 PM PDT Approved by: Timothy Schwab MD on 03/08/2025 2:52 PM PDT Station ID: [id number]
[2025-03-08] MEDS ORDERED: SODIUM CHLORIDE FLUSH 0.9% 10 ML SYRINGE IVP PRN (15:16)
[2025-03-08] MEDS ORDERED: ONDANSETRON ODT 4 MG TABLET TL PRN (15:16)
[2025-03-08] MEDS ORDERED: ACETAMINOPHEN 325 MG TABLET PO PRN (15:16)
[2025-03-08] MEDS: SODIUM CHLORIDE FLUSH 0.9% 10 ML SYRINGE IVP SCH (16:46)
[2025-03-08] MEDS: HEPARIN 5,000 UNIT/ML VIAL SUBQ SCH (21:26)
[2025-03-09] MEDS ORDERED: HALOPERIDOL 5 MG/ML VIAL IVP PRN (05:51)
[2025-03-09] MEDS ORDERED: QUEtiapine 25 MG TABLET PO PRN (05:51)
[2025-03-09] MEDS: cefTRIAXone 1 GM VIAL IVP SCH (08:25)
--- NOTE | 2025-03-09 09:41 | PHARMACY PROGRESS NOTE ---
Best Possible Medication History Admit Date and Time: 03/08/25 113768 Home Medications Medication Instructions Recorded Confirmed Type cholecalciferol (vitamin D3) 50 50 mcg PO DAILY #30 ca ps 03/02/25 03/08/25 Rx mcg (2,000 unit) capsule (Vitamin D3) cyanocobalamin (vitamin B-12) 500 500 mcg PO DAILY #30 tabs 03/02/25 03/08/25 Rx mcg tablet (Vitamin B-12) divalproex 125 mg capsule,delayed 125 mg PO TID #90 ca ps 03/02/25 03/08/25 Rx release sprinkle escitalopram oxalate 10 mg tablet 20 mg (2 x 10 mg) PO DAILY #60 tabs 03/02/25 03/08/25 Rx gabapentin 100 mg capsule 200 mg (2 x 100 mg) PO BIDAC #60 03/02/25 03/08/25 Rx caps ipratropium bromide 21 mcg (0.03 2 spray intranasal BI D #30 mL 03/02/25 03/08/25 Rx %) nasal spray lorazepam 1 mg tablet 1 mg PO TID PRN agitation #9 0 tabs 03/02/25 03/09/25 Rx melatonin 5 mg capsule 5 mg PO HS insomnia #30 caps 03/02/25 03/08/25 Rx risperidone 0.25 mg tablet 0.5 mg (2 x 0.25 mg) PO BID #60 03/02/25 03/08/25 Rx tabs tamsulosin 0.4 mg capsule (Flomax) 0.4 mg PO DAILY #30 caps 03/02/25 03/08/25 Rx acetaminophen 500 mg tablet 500 mg PO Q6H PRN fever or pain 03/08/25 03/08/25 History alum-mag hydroxide-simeth 30 ml PO Q4H PRN UPSET STOMA CH 03/08/25 03/08/25 History magnesium oxide 400 mg PO DAILY 03/08/25 History gabapentin 100 mg capsule 300 mg PO HS 03/09/25 History loperamide 2 mg tablet (Imodium 4 mg PO DAILY PRN loos e stool 03/09/25 03/09/25 History A-D) magnesium hydroxide 400 mg/5 mL 30 ml PO DAILY PRN con stipation 03/09/25 03/09/25 History oral suspension (Milk of Magnesia) Processed by: Pharmacy Medications reviewed in ED?: No Medication History completed: Yes Patient Interview: Pt unable to participate Secondary Source(s): Insurance records and Facility MAR as ONLY source (some discrepancies between MAR and medication list sent by [facility] (lorazepam TID vs Q6h). Used list frequencies as they matched insurance fill hx.) [facility] Statement: As the person ultimately responsible for medication therapy, providers are able to order a medication from an existing home medication list in [facility] via the "Reconcile Routine" prior to Confirmation of that medication by community support worker. Such practice is discouraged except when the physician, in their clinical judgment, deems that a medical need exists for a medication without regard to previous use.
[2025-03-09 10:02] LABS: HCT - HEMATOCRIT 50.1 % (42.0-52.0); HGB - HEMOGLOBIN 15.9 g/dL (14.0-18.0); MEAN CORPUSCULAR HEMOGLOBIN 32.9 pg (27.0-31.0); MEAN CORPUSCULAR HGB CONC 31.7 g/dL (32.0-36.0); MEAN CORPUSCULAR VOLUME 103.5 fL (80.0-94.0); MEAN PLATELET VOLUME 10.3 fL (7.4-11.4); RED BLOOD COUNT 4.84 10^6/uL (4.70-6.10); RED CELL DISTRIBUTION WIDTH 13.3 % (12.0-15.0); WHITE BLOOD COUNT 10.1 x10^3/uL (4.8-10.8)
[2025-03-09 10:18] LABS: MAGNESIUM 2.8 mg/dL (1.7-2.3)
[2025-03-09 10:29] LABS: CALCIUM 9.3 mg/dL (8.5-10.3); POTASSIUM 4.5 mmol/L (3.5-4.5)
[2025-03-09] MEDS: LACTATED RINGERS 1,000 ML IV SCH (10:43)
[2025-03-09] MEDS ORDERED: LORazepam 1 MG TABLET PO PRN (11:08)
[2025-03-09] MEDS: DEXTROSE 5% 1,000 ML IV SCH (11:26)
[2025-03-09] MEDS: ESCITALOPRAM 10 MG TABLET PO SCH (11:45)
[2025-03-09] MEDS: GABAPENTIN 100 MG CAPSULE PO SCH (11:45)
--- NOTE | 2025-03-09 12:27 | PROVIDER PROGRESS NOTE ---
Subjective Subjective Subjective: This morning, patient is opening eyes to voice. He is mumbling a few words. This appears to be his new baseline. His is at bedside. We talked about overall goals of care, and she is interested in hospice informational at this time. He was diagnosed with dementia in 2019, and is slowly progressed. She is worried about him not eating, and we talked about how with dementia, this is the natural progression. Current Medications Current Medications Current Medications: Current Medications Generic Name Dose Route Start Last Admin Trade Name Freq PRN Reason Stop Dose Admin Acetaminophen 650 mg 03/08/25 15:16 Acetaminophen 325 Mg Tablet PO Q4HR PRN Pain 1 to 4, or Fever Ceftriaxone Sodium 1 gm 03/09/25 09:00 03/09/25 08:25 Ceftriaxone 1 Gm Vial IVP 1 gm DAILY [facility] Administration Cholecalciferol 50 mcg 03/10/25 09:00 Cholecalciferol 25 Mcg Tablet PO DAILY [facility] Cyanocobalamin 500 mcg 03/10/25 09:00 Cyanocobalamin 500 Mcg Tablet PO DAILY [facility] Divalproex Sodium 125 mg 03/09/25 14:[address] 125 Mg Tablet PO TID [facility] Escitalopram Oxalate 20 mg 03/09/25 12:00 03/09/25 11:45 Escitalopram 10 Mg Tablet PO 20 mg DAILY [facility] Administration Gabapentin 300 mg 03/09/25 21:00 Gabapentin 300 Mg Capsule PO HS [facility] Gabapentin 200 mg 03/09/25 12:00 03/09/25 11:45 Gabapentin 100 Mg Capsule PO 200 mg 0800,1200 [facility] Administration Haloperidol 5 mg 03/09/25 05:51 Haloperidol 5 Mg/Ml Vial IVP Q6H PRN Agitation Heparin Sodium (Porcine) 5,000 unit 03/08/25 21:00 03/09/25 08:25 Heparin 5,000 Unit/Ml Vial SUBQ 5,000 unit BID [facility] Administration Dextrose 1,000 mls @ 50 mls/hr 03/09/25 11:00 03/09/25 11:26 D5w IV 50 mls/hr .Q20H [facility] Administration Lorazepam 1 mg 03/09/25 11:08 Lorazepam 1 Mg Tablet PO TID PRN agitation Melatonin 6 mg 03/09/25 21:00 Melatonin 3 Mg Tablet PO QPM [facility] Ondansetron HCl 4 mg 03/08/25 15:16 Ondansetron Odt 4 Mg Tablet TL Q6HR PRN Nausea / Vomiting Quetiapine Fumarate 25 mg 03/09/25 05:51 Quetiapine 25 Mg Tablet PO Q12H PRN Agitation Risperidone 0.5 mg 03/09/25 21:00 Risperidone 0.25 Mg Tablet PO BID [facility] Sodium Chloride 10 ml 03/08/25 15:16 Sodium Chloride Flush 0.9% 10 Ml Syringe IVP PRN PRN NEEDED PER PROVIDER ORDERS Sodium Chloride 10 ml 03/08/25 17:00 03/09/25 09:06 Sodium Chloride Flush 0.9% 10 Ml Syringe IVP 10 ml 0100,0900,1700 [facility] Administration Tamsulosin HCl 0.4 mg 03/10/25 09:00 Tamsulosin 0.4 Mg Capsule PO DAILY [facility] Objective Vital Signs/Intake & Output Reviewed Vital Signs: Yes Vital Signs: Vital Signs x48h Temp Pulse Resp BP BP Pulse Ox 03/09/25 08:54 97.7 F 88 18 166/119 H 93 03/09/25 05:00 98.1 F 86 18 143/98 H 95 Intake & Output: Intake & Output 03/06/25 03/07/25 03/08/25 03/09/25 23:59 23:59 23:59 23:59 Intake Total 1999 60 / 60 Output Total 2550 / 2550 775 / 775 Balance -550 / -550 -715 / -715 Weight (kg) 85 kg Objective General Appearance: positive No acute distress and Alert; negative Anxious Eyes Bilateral: positive Normal inspection, PERRL and EOMI ENT: positive ENT inspection nml, Pharynx nml and No signs of dehydration Neck: positive Nml inspection, Thyroid nml, No JVD and Trachea midline Respiratory: positive Chest non-tender, No respiratory distress and Breath sounds nml Cardiovascular: positive Regular rate & rhythm, No murmur and No gallop Abdomen: positive Non-tender and No distention; negative Guarding, Hepatomegaly or Splenomegaly Back: positive Nml inspection; negative CVA tenderness (R) or CVA tenderness (L) Skin: positive Color nml, No rash, Warm and Dry Extremities: positive Non-tender and No pedal edema Neurologic/Psychiatric: positive Disoriented to person, Disoriented to place, Disoriented to time and Other (mumbling a few words here and there) Lab Results 03/09/25 09:40 03/09/25 09:40 Other Labs: Lab Results x24hrs 03/09/25 03/08/25 03/08/25 Range/Units 09:40 13:37 11:17 WBC 10.1 (4.8-10.8) x10^3/uL RBC 4.84 (4.70-6.10) 10^6/uL Hgb 15.9 (14.0-18.0) g/dL Hct 50.1 (42.0-52.0) % MCV 103.5 H (80.0-94.0) fL MCH 32.9 H (27.0-31.0) pg MCHC 31.7 L (32.0-36.0) g/dL RDW 13.3 (12.0-15.0) % Plt Count 157 (130-450) 10^3/uL MPV 10.3 (7.4-11.4) fL Sodium 154 H 148 H (135-145) mmol/L Potassium 4.5 4.9 H (3.5-4.5) mmol/L Chloride 121 H* 114 H (101-111) mmol/L Carbon Dioxide 24 23 (21-32) mmol/L Anion Gap 9.0 11.0 (6-13) BUN 55 H 95 H* (6-20) mg/dL Creatinine 2.0 H 8.2 H* (0.6-1.3) mg/dL Estimated GFR (MDRD) 32 L 6 L (>89) Glucose 121 H 137 H (74-104) mg/dL Calcium 9.3 8.6 (8.5-10.3) mg/dL Phosphorus 3.1 (2.5-5.0) mg/dL Magnesium 2.8 H (1.7-2.3) mg/dL Last Dose Date UNK Last Dose Time UNK Diagnostic Imaging Diagnostic Imaging Results: positive Final report reviewed Assessment/Plan Problem List (1) Acute urinary retention: Impression: When patient presented, he was retaining about 900 cc of urine. Meier catheter placed. CT abdomen/pelvis was completedit does show mild bilateral hydronephrosis. There is moderately severe prostatomegaly. Patient would benefit from urology consult in the outpatient setting, however, plan is likely to make him hospice. Maintain Meier catheter at this time. (2) Acute metabolic encephalopathy: Impression: Patient has underlying Alzheimer's disease. Appears closer to his baseline now as uremia is resolving as is his urinary tract infection. Patient's is interested in a hospice informational. Hospice consulted and spoken with today; appreciate insight and help. (3) Acute kidney injury: Impression: Likely postrenal due to obstruction, prostatomegaly as stated above. Improving. Maintain Meier catheter. Continue gentle fluid rehydration. (4) Hypernatremia: Impression: Likely iatrogenic due to IV fluid resuscitation. Switch to D5 at 50 cc/h. Continue to trend. (5) Hyperkalemia: Impression: Resolved now that the VESNA is resolving. (6) Urinary tract infection: Impression: UA positive for infection. Continue IV Rocephin at this time. Urine culture pending speciation. Qualifiers: Hematuria presence: without hematuria Urinary tract infection type: s ite unspecified Qualified Code(s): N39.0 - Urinary tract infection, site not specified (7) High anion gap metabolic acidosis: Impression: Resolved. Attributed to uremia as stated above. (8) Alzheimer disease: Impression: Patient has a longstanding history of Alzheimer's dementia. Decreased p.o. intake. Hospice informational set up as requested by the .
[2025-03-09] MEDS: DIVALPROEX DR 125 MG TABLET PO SCH (13:20)
[2025-03-09 16:30] LABS: CREATININE 1.6 mg/dL (0.6-1.3); POTASSIUM 4.4 mmol/L (3.5-4.5)
[2025-03-09] MEDS: GABAPENTIN 300 MG CAPSULE PO SCH (21:57)
[2025-03-09] MEDS: MELATONIN 3 MG TABLET PO SCH (21:57)
[2025-03-09] MEDS: risperiDONE 0.25 MG TABLET PO SCH (21:57)
[2025-03-10 07:00] LABS: HGB - HEMOGLOBIN 15.8 g/dL (14.0-18.0); MEAN CORPUSCULAR HEMOGLOBIN 33.2 pg (27.0-31.0); MEAN CORPUSCULAR HGB CONC 31.6 g/dL (32.0-36.0); MEAN PLATELET VOLUME 10.3 fL (7.4-11.4); RED BLOOD COUNT 4.76 10^6/uL (4.70-6.10); RED CELL DISTRIBUTION WIDTH 13.2 % (12.0-15.0); WHITE BLOOD COUNT 9.5 x10^3/uL (4.8-10.8)
[2025-03-10 07:03] LABS: MAGNESIUM 2.5 mg/dL (1.7-2.3)
[2025-03-10 07:18] LABS: CALCIUM 8.9 mg/dL (8.5-10.3); CREATININE 1.3 mg/dL (0.6-1.3); POTASSIUM 4.3 mmol/L (3.5-4.5)
--- NOTE | 2025-03-10 08:23 | PROVIDER PROGRESS NOTE ---
Subjective Subjective Subjective: This morning, patient is opening eyes to voice. He is mumbling a few words. This appears to be his new baseline. His is at bedside. We talked about overall goals of care, and she is interested in hospice informational at this time. He was diagnosed with dementia in 2019, and is slowly progressed. She is worried about him not eating, and we talked about how with dementia, this is the natural progression. Current Medications Current Medications Current Medications: Current Medications Generic Name Dose Route Start Last Admin Trade Name Freq PRN Reason Stop Dose Admin Acetaminophen 650 mg 03/08/25 15:16 Acetaminophen 325 Mg Tablet PO Q4HR PRN Pain 1 to 4, or Fever Ceftriaxone Sodium 1 gm 03/09/25 09:00 03/09/25 08:25 Ceftriaxone 1 Gm Vial IVP 1 gm DAILY [facility] Administration Cholecalciferol 50 mcg 03/10/25 09:00 Cholecalciferol 25 Mcg Tablet PO DAILY [facility] Cyanocobalamin 500 mcg 03/10/25 09:00 Cyanocobalamin 500 Mcg Tablet PO DAILY [facility] Divalproex Sodium 125 mg 03/09/25 14:00 03/10/25 06:[address] 125 Mg Tablet PO 125 mg TID [facility] Administration Escitalopram Oxalate 20 mg 03/09/25 12:00 03/09/25 11:45 Escitalopram 10 Mg Tablet PO 20 mg DAILY [facility] Administration Gabapentin 300 mg 03/09/25 21:00 03/09/25 21:57 Gabapentin 300 Mg Capsule PO 300 mg HS [facility] Administration Gabapentin 200 mg 03/09/25 12:00 03/09/25 11:45 Gabapentin 100 Mg Capsule PO 200 mg 0800,1200 [facility] Administration Haloperidol 5 mg 03/09/25 05:51 Haloperidol 5 Mg/Ml Vial IVP Q6H PRN Agitation Heparin Sodium (Porcine) 5,000 unit 03/08/25 21:00 03/09/25 21:58 Heparin 5,000 Unit/Ml Vial SUBQ 5,000 unit BID [facility] Administration Dextrose 1,000 mls @ 75 mls/hr 03/09/25 11:00 03/10/25 07:41 D5w IV 50 mls/hr .[id number] [facility] Administration Lorazepam 1 mg 03/09/25 11:08 Lorazepam 1 Mg Tablet PO TID PRN agitation Melatonin 6 mg 03/09/25 21:00 03/09/25 21:57 Melatonin 3 Mg Tablet PO 6 mg QPM [facility] Administration Ondansetron HCl 4 mg 03/08/25 15:16 Ondansetron Odt 4 Mg Tablet TL Q6HR PRN Nausea / Vomiting Quetiapine Fumarate 25 mg 03/09/25 05:51 Quetiapine 25 Mg Tablet PO Q12H PRN Agitation Risperidone 0.5 mg 03/09/25 21:00 03/09/25 21:57 Risperidone 0.25 Mg Tablet PO 0.5 mg BID [facility] Administration Sodium Chloride 10 ml 03/08/25 15:16 Sodium Chloride Flush 0.9% 10 Ml Syringe IVP PRN PRN NEEDED PER PROVIDER ORDERS Sodium Chloride 10 ml 03/08/25 17:00 03/10/25 00:52 Sodium Chloride Flush 0.9% 10 Ml Syringe IVP 10 ml 0100,0900,1700 [facility] Administration Tamsulosin HCl 0.4 mg 03/10/25 09:00 Tamsulosin 0.4 Mg Capsule PO DAILY [facility] Objective Vital Signs/Intake & Output Reviewed Vital Signs: Yes Vital Signs: Vital Signs x48h Temp Pulse Resp BP BP Pulse Ox 03/09/25 08:54 97.7 F 88 18 166/119 H 93 03/09/25 05:00 98.1 F 86 18 143/98 H 95 Intake & Output: Intake & Output 03/07/25 03/08/25 03/09/25 03/10/25 23:59 23:59 23:59 23:59 Intake Total 1999 / 1999 300 / 300 1000 / 1000 Output Total 2550 / 2550 1775 / 1775 1850 / 1850 Balance -550 / -550 -1475 / -1475 -850 / -850 Weight (kg) 85 kg Objective General Appearance: positive No acute distress and Alert; negative Anxious Eyes Bilateral: positive Normal inspection, PERRL and EOMI ENT: positive ENT inspection nml, Pharynx nml and No signs of dehydration Neck: positive Nml inspection, Thyroid nml, No JVD and Trachea midline Respiratory: positive Chest non-tender, No respiratory distress and Breath sounds nml Cardiovascular: positive Regular rate & rhythm, No murmur and No gallop Abdomen: positive Non-tender and No distention; negative Guarding, Hepatomegaly or Splenomegaly Back: positive Nml inspection; negative CVA tenderness (R) or CVA tenderness (L) Skin: positive Color nml, No rash, Warm and Dry Extremities: positive Non-tender and No pedal edema Neurologic/Psychiatric: positive Disoriented to person, Disoriented to place, Disoriented to time and Other (mumbling a few words here and there) Lab Results 03/10/25 06:45 03/10/25 13:53 Other Labs: Lab Results x24hrs 03/10/25 03/09/25 03/09/25 Range/Units 06:45 16:05 09:40 WBC 9.5 10.1 (4.8-10.8) x10^3/uL RBC 4.76 4.84 (4.70-6.10) 10^6/uL Hgb 15.8 15.9 (14.0-18.0) g/dL Hct 50.0 50.1 (42.0-52.0) % MCV 105.0 H 103.5 H (80.0-94.0) fL MCH 33.2 H 32.9 H (27.0-31.0) pg MCHC 31.6 L 31.7 L (32.0-36.0) g/dL RDW 13.2 13.3 (12.0-15.0) % Plt Count 155 157 (130-450) 10^3/uL MPV 10.3 10.3 (7.4-11.4) fL Sodium 153 H 153 H 154 H (135-145) mmol/L Potassium 4.3 4.4 4.5 (3.5-4.5) mmol/L Chloride 120 H* 120 H* 121 H* (101-111) mmol/L Carbon Dioxide 25 25 24 (21-32) mmol/L Anion Gap 8.0 8.0 9.0 (6-13) BUN 38 H 48 H 55 H (6-20) mg/dL Creatinine 1.3 1.6 H 2.0 H (0.6-1.3) mg/dL Estimated GFR (MDRD) 53 L 42 L 32 L (>89) Glucose 133 H 122 H 121 H (74-104) mg/dL Calcium 8.9 9.0 9.3 (8.5-10.3) mg/dL Phosphorus 3.1 (2.5-5.0) mg/dL Magnesium 2.5 H 2.8 H (1.7-2.3) mg/dL Diagnostic Imaging Diagnostic Imaging Results: positive Final report reviewed Assessment/Plan Problem List (1) Acute urinary retention: Impression: When patient presented, he was retaining about 900 cc of urine. Meier catheter placed. CT abdomen/pelvis was completedit does show mild bilateral hydronephrosis. There is moderately severe prostatomegaly. Patient would benefit from urology consult in the outpatient setting, however, plan is likely to make him hospice. Maintain Meier catheter at this time. (2) Acute metabolic encephalopathy: Impression: Patient has underlying Alzheimer's disease. Appears closer to his baseline now as uremia is resolving as is his urinary tract infection. Patient's is interested in a hospice informational. Hospice consulted and spoken with ; appreciate insight and help. (3) Acute kidney injury: Impression: Likely postrenal due to obstruction, prostatomegaly as stated above. Improving. Maintain Meier catheter. Continue gentle fluid rehydration. (4) Hypernatremia: Impression: Likely iatrogenic due to IV fluid resuscitation. Switch to D5. Increased rate to 75 cc/h. Continue to trend. (5) Hyperkalemia: Impression: Resolved now that the VESNA is resolving. (6) Urinary tract infection: Impression: UA positive for infection. Continue IV Rocephin at this time. Urine culture pending speciation. Qualifiers: Hematuria presence: without hematuria Urinary tract infection type: s ite unspecified Qualified Code(s): N39.0 - Urinary tract infection, site not specified (7) High anion gap metabolic acidosis: Impression: Resolved. Attributed to uremia as stated above. (8) Alzheimer disease: Impression: Patient has a longstanding history of Alzheimer's dementia. Decreased p.o. intake. Hospice informational set up as requested by the .
[2025-03-10] MEDS: CHOLECALCIFEROL 25 MCG TABLET PO SCH (09:07)
[2025-03-10] MEDS: TAMSULOSIN 0.4 MG CAPSULE PO SCH (09:07)
[2025-03-10] MEDS: CYANOCOBALAMIN 500 MCG TABLET PO SCH (09:07)
[2025-03-10 14:19] LABS: CALCIUM 8.9 mg/dL (8.5-10.3); CREATININE 1.2 mg/dL (0.6-1.3); POTASSIUM 4.3 mmol/L (3.5-4.5)
[2025-03-10 20:14] LABS: CREATININE 1.1 mg/dL (0.6-1.3); POTASSIUM 4.3 mmol/L (3.5-4.5)
[2025-03-10 23:39] VITALS: TEMP 98.2
[2025-03-11 05:59] LABS: HCT - HEMATOCRIT 49.8 % (42.0-52.0); HGB - HEMOGLOBIN 16.2 g/dL (14.0-18.0); MEAN CORPUSCULAR HEMOGLOBIN 33.5 pg (27.0-31.0); MEAN CORPUSCULAR HGB CONC 32.5 g/dL (32.0-36.0); MEAN CORPUSCULAR VOLUME 102.9 fL (80.0-94.0); MEAN PLATELET VOLUME 10.9 fL (7.4-11.4); RED BLOOD COUNT 4.84 10^6/uL (4.70-6.10); RED CELL DISTRIBUTION WIDTH 12.8 % (12.0-15.0); WHITE BLOOD COUNT 9.7 x10^3/uL (4.8-10.8)
[2025-03-11 06:18] LABS: CALCIUM 8.7 mg/dL (8.5-10.3); CREATININE 1.3 mg/dL (0.6-1.3); MAGNESIUM 2.4 mg/dL (1.7-2.3); POTASSIUM 4.2 mmol/L (3.5-4.5)
[2025-03-11 07:44] VITALS: BP 117/83; O2SAT 96
--- NOTE | 2025-03-11 08:52 | Discharge Summary ---
"Discharge Summary Admit Date: 03/08/25 Discharge Date: 03/11/25 Discharging Provider: Dr. Niko Mendoza Primary Care Provider: Babs Weiss MD Code Status: Do Not Attempt Resuscitation Discharge Facility Name: Home Care DIAGNOSES Admission Diagnoses: Acute urinary retention Acute metabolic encephalopathy Acute kidney injury Hyperkalemia Urinary tract infection High anion gap metabolic acidosis Alzheimer's disease Discharge Diagnoses with Status of Each Condition: Acute urinary retentionCT abdomen/pelvis shows prostatomegaly. Patient will need Meier catheter in place indefinitely. Plan is likely hospice care. Intake will be on Friday. Acute metabolic encephalopathypatient is back at his baseline. Mumbles a few words here and there, has been sleeping a lot, has not been eating or drinking much. Plan is for hospice care. Acute kidney injuryresolved. Likely postrenal due to prostatomegaly, obstruction. Improved with Meier catheter placement and IV fluids. Hyperkalemiaresolved. Urinary tract infectioncompleted 3-day course of IV Rocephin, will complete oral antibiotic course on discharge. High anion gap metabolic acidosisdue to uremia, resolved. Alzheimer's diseaseplan for hospice placement. HPI History of Present Illness: Patient is a 79-year-old man with a history of Alzheimer's dementia who presented due to worsening lethargy. History is taken from patient's at bedside as patient is unable to provide so. He is nonverbal at this time. Patient's says about 2 weeks ago, she started noticing increased aggression. She has a long history of dealing with Alzheimer's disease in her mother, as well as her 's mother. Initially, she was able to handle him at home. However, with increased aggression and outburst, it was not safe for her to do so. As such, she brought him to the ER at that time, and patient was placed in a memory care facility. During that stay, he was found to be retaining urine. A Meier catheter was placed. At the memory care facility, he pulled out his Meier catheter. Over the last few days, per the , he has been increasingly lethargic. Usually he wakes up, and is able to eat a little bit. However, he is unable to do so at this time. He has been sleeping all day. Lab work was reviewedpatient has a leukocytosis of 12.5. His pH was 7.43, his CO2 is 26. His sodium is elevated at 146, his potassium is 5.3. He has a high and gap metabolic acidosis. His BUN is 111. His creatinine is elevated at 11, with his baseline on 02/28/2025 being 1.2. His magnesium was high at 3.1 as well. He is UA is positive for blood, leukocyte esterase, WBCs. Abdomen/pelvis CT without contrast was completed, read remains pending. Meier catheter was placed. was spoken with at bedside extensively about goals of careshe does not want dialysis. He is DNR/DNI. She would like to give him some time with IV fluids, antibiotics, minimal medical management. However, if there is not much improvement, she is very well versed in hospice care and will be okay going down that route. CONSULTS | PROCEDURES Consultations: Hospice Procedures: CT abdomen/pelvis HOSPITAL COURSE Hospital Course: Patient is a 79-year-old male with a history of Alzheimer's dementia who came in due to worsening lethargy, obtundation. He was found to have a creatinine of 11.1. He was retaining urine, about 900 cc when he came in. Meier catheter was placed. He was started on IV fluids. CT abdomen/pelvis revealed prostatomegaly. Meier catheter was maintained. During his stay, he did develop some hypernatremia due to dehydration and likely iatrogenic causes due to IV fluid resuscitation with the [facility]. He was started on D5W and this resolved. His creatinine also normalized. Overall goals of care were addressed with , and she has opted for hospice care. They will do an intake at his home care on Friday. His sodium was normalizing. He was back at his baseline mentation. Plan was to discharge home with close follow-up with hospice. ALLERGIES Allergies Allergy/AdvReac Type Severity Reaction Status Date / Time Penicillins Allergy Hives Verified 03/08/25 10:49 MEDICATIONS Ambulatory Orders Medication Instructions Recorded Confirmed cholecalciferol (vitamin D3) 50 50 mcg PO DAILY #30 ca ps 03/02/25 03/08/25 mcg (2,000 unit) capsule (Vitamin D3) cyanocobalamin (vitamin B-12) 500 500 mcg PO DAILY #30 tabs 03/02/25 03/08/25 mcg tablet (Vitamin B-12) divalproex 125 mg capsule,delayed 125 mg PO TID #90 ca ps 03/02/25 03/08/25 release sprinkle escitalopram oxalate 10 mg tablet 20 mg (2 x 10 mg) PO DAILY #60 tabs 03/02/25 03/08/25 gabapentin 100 mg capsule 200 mg (2 x 100 mg) PO BIDAC #60 03/02/25 03/08/25 caps ipratropium bromide 21 mcg (0.03 2 spray intranasal BI D #30 mL 03/02/25 03/08/25 %) nasal spray lorazepam 1 mg tablet 1 mg PO TID PRN agitation #9 0 tabs 03/02/25 03/09/25 melatonin 5 mg capsule 5 mg PO HS insomnia #30 caps 03/02/25 03/08/25 risperidone 0.25 mg tablet 0.5 mg (2 x 0.25 mg) PO BID #60 03/02/25 03/08/25 tabs tamsulosin 0.4 mg capsule (Flomax) 0.4 mg PO DAILY #30 caps 03/02/25 03/08/25 acetaminophen 500 mg tablet 500 mg PO Q6H PRN fever or pain 03/08/25 03/08/25 alum-mag hydroxide-simeth 30 ml PO Q4H PRN UPSET STOMA CH 03/08/25 03/08/25 magnesium oxide 400 mg PO DAILY 03/08/25 gabapentin 100 mg capsule 300 mg PO HS 03/09/25 loperamide 2 mg tablet (Imodium 4 mg PO DAILY PRN loos e stool 03/09/25 03/09/25 A-D) magnesium hydroxide 400 mg/5 mL 30 ml PO DAILY PRN con stipation 03/09/25 03/09/25 oral suspension (Milk of Magnesia) nitrofurantoin 100 mg PO BID 1 day #2 caps 03/11/25 monohydrate/macrocrystals 100 mg capsule (Macrobid) PHYSICAL EXAM AT DISCHARGE Vital Signs: Vital Signs x48h Temp Pulse Resp BP Pulse Ox 03/11/25 07:42 98.2 F 87 20 117/83 96 General Appearance: positive No acute distress and Lethargic; negative Alert or Anxious Eyes Bilateral: positive Normal inspection, PERRL and EOMI ENT: positive ENT inspection nml, Pharynx nml and No signs of dehydration Neck: positive Nml inspection, Thyroid nml and No JVD Respiratory: positive Chest non-tender, No respiratory distress and Breath sounds nml Cardiovascular: positive Regular rate & rhythm and No murmur Peripheral Pulses: positive 2+ Abdomen: positive Non-tender, No organomegaly, Nml bowel sounds and No distention Back: positive Nml inspection; negative CVA tenderness (R) or CVA tenderness (L) Skin: positive Color nml, No rash, Warm and Dry Extremities: positive Non-tender, Full ROM and No pedal edema Neurologic/Psychiatric: positive Disoriented to person, Disoriented to place and Disoriented to time LABS 03/11/25 05:30 03/11/25 05:30 DIAGNOSTIC IMAGING Diagnostic Imaging Results: Final report reviewed FOLLOW UP Follow Up: Follow up with Hospice team. TIME SPENT Time Spent in Discharge (Minutes): 35 Discharge Plan Discharge Patient Disposition: [facility], Self Care Condition: Stable Prescriptions: New nitrofurantoin monohyd/m-cryst [Macrobid] 100 mg capsule 100 mg PO BID 1 Days Qty: 2 0RF Rx Instructions: must administer with a meal/food Continued risperidone 0.25 mg Tablet 0.5 mg PO BID Qty: 60 0RF cyanocobalamin (vitamin B-12) [Vitamin B-12] 500 mcg tablet 500 mcg PO DAILY Qty: 30 0RF gabapentin 100 mg capsule 200 mg PO BIDAC Qty: 60 0RF Rx Instructions: breakfast and lunch divalproex 125 mg capsule, delayed rel sprinkle 125 mg PO TID Qty: 90 0RF ipratropium bromide 21 mcg (0.03 %) spray,non-aerosol 2 spray INTRANASAL BID Qty: 30 0RF escitalopram oxalate 10 mg tablet 20 mg PO DAILY Qty: 60 0RF cholecalciferol (vitamin D3) [Vitamin D3] 2,000 UNIT capsule 50 mcg PO DAILY Qty: 30 0RF melatonin 5 mg capsule 5 mg PO HS Qty: 30 0RF lorazepam 1 mg tablet 1 mg PO TID PRN (Reason: agitation) Qty: 90 0RF tamsulosin [Flomax] 0.4 mg capsule 0.4 mg PO DAILY Qty: 30 2RF acetaminophen 500 mg tablet 500 mg PO Q6H PRN (Reason: fever or pain) magnesium oxide 400 mg magnesium tablet 400 mg PO DAILY alum-mag hydroxide-simeth liquid 30 ml PO Q4H PRN (Reason: UPSET STOMACH) Rx Instructions: 30 ML (0408-3458-705 MG) BY MOUTH EVERY 4 HOURS NEEDED FOR COMPLAINTS OF UPSET STOMACH OR HEARTBURN *NOTIFY PROVIDER IF SYMPTOMS ARE NOT RESOLVED AFTER 4 DOSES OR IF RESIDENT HAS ABDOMINAL PAIN, DARK TARRY (BLOODY) STOOLS, OR FEVER GREATER THAN 100* gabapentin 100 mg capsule 300 mg PO HS loperamide [Imodium A-D] 2 mg tablet 4 mg PO DAILY PRN (Reason: loose stool) magnesium hydroxide [Milk of Magnesia] 400 mg/5 mL suspension 30 ml PO DAILY PRN (Reason: constipation) Activity Restrictions: Activity as Tolerated Diet: Regular Health Concerns: You came in because you were confused, somnolent. Your kidney numbers were really high, likely because you were holding onto urine in your bladder. This was likely due to your large prostate causing an obstruction. You will need to keep your Meier catheter in, indefinitely. We also had a long discussion about your goals of care with yourself and your , and you have opted to pursue hospice care. They will be visiting your memory care facility on Friday. I have sent one more day of antibiotics to your facility; please take this to complete your course. We are glad you are feeling better, thanks for letting us take care of you. Print Language: Korean Patient Instructions: Hospice Stand Alone Forms: PCP List"
== END 2025-03-11 11:17 | disposition home or self-care (01) | DRG 725 ==
LOC: MS2 10:44 → ED 10:44 → MS2 14:55
PROVIDERS: ADMIT Internal Medicine; ATTEND Internal Medicine